=== PATIENT | female | born 1955 | race Caucasian/White ===

== ENCOUNTER 2020-12-27 14:48 | Emergency (ER) | payer OTHER ==
[~2020-12-27 14:48] MED LIST: AMOXICILLIN500 MG PO; ASPIRIN325 MG PO; BACTRIM DS TAB1 EACH PO; LACTINEX1 EACH PO; MULTIPLE VITAM1 EAC2 PO; NEURONTIN600 MG PO; PERCOCET 5/3251 TAB PO; TENORMIN50 MG PO
[2020-12-27] MEDS ORDERED: NORCO 5-325 TA1 EACH PO (18:15)
[2020-12-27] MEDS ORDERED: ROBAXIN750 MG PO (18:15)
== END 2020-12-27 18:48 | disposition home or self-care (01) ==
LOC: FER 14:48
DX: S30.0XXA Contusion of lower back and pelvis, initial encounter (principal); S20.212A Contusion of left front wall of thorax, initial encounter; S50.12XA Contusion of left forearm, initial encounter; S80.02XA Contusion of left knee, initial encounter; I10 Essential (primary) hypertension; F17.210 Nicotine dependence, cigarettes, uncomplicated; W11.XXXA Fall on and from ladder, initial encounter; Y92.009 Unspecified place in unspecified non-institutional (private) residence as the place of occurrence of the external cause
CPT/HCPCS: 71100; 72100; 73090; 73560